=== PATIENT | male | born 1975 | race Caucasian/White ===

== ENCOUNTER → 2016-08-13 | Outpatient (CLI) | payer OTHER ==
[~2016-08-13] MED LIST: ALBUTEROL0.09 MG/A2 IH; ALBUTEROL0.09 MG/A2 INH; AMOXICILLIN500 MG PO; ANAPROX DS550 MG PO; BENADRYL25 M2 PO; CHANTIX START M1 TAB PO; CLARITIN10 MG PO; CLINDAMYCIN HC300 MG PO; CLINDAMYCIN300 MG PO; CLINORIL200 MG PO; COGENTIN0.5 MG PO; COZAAR25 M1 PO; CYCLOBENZAPRINE10 MG PO; FOLIC ACID1 MG PO; GLUCOPHAGE1000 MG PO; INDOCIN50 MG PO; KEFLEX500 MG PO; LIPITOR40 MG PO; MOTRIN800 MG PO; NAPROSYN500 MG PO; NOVOLOG MI100 UNIT/2 SQ; PHENERGAN W/DM120 ML PO; PREDNICOT10 MG PO; PREDNISONE20 MG PO; PRILOSEC20 MG PO; PRILOSEC40 MG PO; PRISTIQ50 MG PO; PROAIR HFA0.09 MG/AC INH; PROZAC20 MG PO; RESTASIS 0.4 M0.4 M1 OP; SULINDAC200 MG PO; TRAZADONE; VIBRAMYCIN100 MG PO; VICODIN 5/500 505 MG PO; VICODIN ES 7501 TA1; VISTARIL25 M2 PO; WELLBUTRIN SR200 MG PO; XANAX0.5 MG PO; Z-PACK; ZANTAC 300300 MG PO; ZITHROMAX Z PA250 MG PO; ZOLOFT25 MG PO
--- NOTE | ~2016-08-13 | ST ---
[place], [place] EXERCISE STRESS TEST REPORT NAME: RAMON ROGERS UNIT #: [id number] ROOM: DOCTOR: ALEXEY FALCON MD BIRTHDATE: [birth year] DOS: 08/13/2016 PHARMACOLOGIC STRESS TEST REASON FOR STRESS TEST: Dyspnea. PROCEDURE: The patient was given a rapid infusion of regadenoson followed by a saline flush. He experienced some hot sensations. He had no chest pain, dyspnea or nausea. The resting and stress electrocardiograms showed normal sinus rhythm without diagnostic ST changes. He did have a normal tachycardic response to the infusion, but no ST changes. The resting heart rate of 105 j luis to 118. The resting blood pressure of 114/68 fell to 96/62. After the infusion of regadenoson, the patient was given radionuclide intravenously. IMPRESSION: 1. Well tolerated infusion of regadenoson. 2. Isotope injected. Please see the separate myocardial perfusion report for details of the patient's stress test results. ALEXEY FALCON MD CM:STRESS:EXERCISE STRESS TEST REPORT [id number] ALEXEY FALCON MD
== END | disposition home or self-care (01) ==
LOC: CARD 02:26
DX: E11.9 Type 2 diabetes mellitus without complications (principal); I10 Essential (primary) hypertension; R06.09 Other forms of dyspnea; E78.4 Other hyperlipidemia; R06.02 Shortness of breath; Z79.4 Long term (current) use of insulin; I31.3 Pericardial effusion (noninflammatory)

== ENCOUNTER 2016-08-15 14:23 | Emergency (ER) | payer OTHER ==
[~2016-08-15] VITALS: Ht 165.1 cm; Wt 113.4 kg
[~2016-08-15 14:23] MED LIST changes: -CYCLOBENZAPRINE10 MG PO
[2016-08-15 14:41] VITALS: BP 118/63
[2016-08-15] MEDS ORDERED: NAPROSYN500 MG PO (15:50)
[2016-08-15] MEDS ORDERED: CYCLOBENZAPRINE10 MG PO (15:50)
== END 2016-08-15 15:53 | disposition home or self-care (01) ==
LOC: ED 14:23
DX: S39.012A Strain of muscle, fascia and tendon of lower back, initial encounter (principal); F17.200 Nicotine dependence, unspecified, uncomplicated; Z88.0 Allergy status to penicillin; Z88.8 Allergy status to other drugs, medicaments and biological substances; Z79.899 Other long term (current) drug therapy; X58.XXXA Exposure to other specified factors, initial encounter; Y93.9 Activity, unspecified; Y92.9 Unspecified place or not applicable; Y99.9 Unspecified external cause status

== ENCOUNTER 2017-01-18 12:05 | Inpatient (IN) | payer OTHER ==
[~2017-01-18] VITALS: Ht 165.1 cm; Wt 138.3 kg
[2017-01-18 12:05] VITALS: BP 141/87
[~2017-01-18 12:05] MED LIST changes: +CYCLOBENZAPRINE10 MG PO
[2017-01-18 12:34] LABS: BASO # 0.1 10*3/uL (0.0-0.1); BASO % 1.3 % (0.0-1.0); EOS # 0.2 10*3/uL (0.0-0.4); EOS % 2.2 % (1.0-4.0); HEMATOCRIT 45.1 % (42.0-52.0); HEMOGLOBIN 15.9 g/dl (14.0-18.0); LYMPH # 1.6 10*3/uL (1.3-4.4); MEAN CELL VOLUME 80.5 fl (80.0-94.0); MEAN CORPUSCULAR HGB 28.4 pg (27.0-31.0); MEAN CORPUSCULAR HGB CONC 35.3 g/dl (33.0-37.0); MEAN PLATELET VOLUME 11.7 fl (9.6-12.3); MONO # 0.4 10*3/uL (0.1-1.0); MONO % 4.3 % (3.0-9.0); NEUT # 5.9 10*3/uL (2.3-7.9); PLATELET COUNT AUTOMATED 150 10*3/uL (130-400); RED CELL DISTRI WIDTH 12.3 % (0-14.5); WHITE BLOOD COUNT 8.2 10*3/uL (4.8-10.8)
[2017-01-18 12:52] LABS: ALBUMIN 4.2 gm/dl (3.1-4.5); ALKALINE PHOSPHATASE 171 U/L (45-117); BILIRUBIN, TOTAL 0.6 mg/dl (0.2-1.0); BUN 5 mg/dl (7-24); CARBON DIOXIDE 25 mmol/L (21-32); CHLORIDE 99 mmol/L (98-107); EST GLOM FILT AFRICAN AMERICAN > 60 ml/min; GLUCOSE 231 mg/dL (65-99); SGOT/AST 48 IU/L (3-35); SGPT/ALT 81 U/L (12-78); SODIUM 137 mmol/L (136-145); TOTAL PROTEIN 7.6 gm/dL (6.4-8.2)
[2017-01-18 12:57] LABS: TROPONIN I < 0.015 ng/ml (<0.045)
[2017-01-18] MEDS ORDERED: BENZTROPINE ME0.5 MG PO ×2 (13:00→13:06)
[2017-01-18] MEDS ORDERED: BUPROPION HYDR200 M2 PO (13:00)
[2017-01-18] MEDS ORDERED: ALPRAZOLAM0.5 M3 PO (13:00)
[2017-01-18] MEDS ORDERED: HYDROXYZINE PAM25 M1 PO (13:01)
[2017-01-18] MEDS ORDERED: PRISTIQ50 MG PO (13:01)
[2017-01-18] MEDS ORDERED: K-TAB20 MEQ PO (13:02)
[2017-01-18] MEDS ORDERED: LIPITOR20 MG PO (13:03)
[2017-01-18] MEDS ORDERED: ZYLOPRIM100 MG PO (13:04)
[2017-01-18] MEDS ORDERED: HYZAAR 12.5 MG-1 TA2 PO (13:04)
[2017-01-18] MEDS ORDERED: NATURE'S BLEND F1 MG PO (13:04)
[2017-01-18] MEDS ORDERED: CARTIA XT120 MG PO (13:04)
[2017-01-18] MEDS ORDERED: POTASSIUM CHLOR8 MEQ PO (13:05)
[2017-01-18] MEDS ORDERED: SULINDAC200 M1 PO (13:05)
[2017-01-18] MEDS ORDERED: PRISTIQ100 MG PO (13:06)
[2017-01-18] MEDS ORDERED: ZOFRAN4 MG PO (13:06)
[2017-01-18] MEDS ORDERED: PRILOSEC20 M1 PO (13:07)
[2017-01-18] MEDS ORDERED: HALOPERIDOL10 MG PO (13:07)
[2017-01-18] MEDS ORDERED: CLARITIN10 MG PO (13:08)
[2017-01-18] MEDS ORDERED: HYDROXYZINE HCL25 M1 PO (13:08)
[2017-01-18] MEDS ORDERED: ZANTAC 150150 MG PO (13:08)
[2017-01-18] MEDS ORDERED: XANAX0.5 MG PO (13:08)
[2017-01-18] MEDS ORDERED: METFORMIN1000 MG PO (13:09)
[2017-01-18] MEDS ORDERED: GLIMEPIRIDE2 MG PO (13:09)
[2017-01-18] MEDS ORDERED: INVOKANA100 M1 PO (13:09)
[2017-01-18] MEDS ORDERED: NOVOLOG 70/30 M10 ML SC (13:10)
[2017-01-18] MEDS ORDERED: TRULICITY0.75 MG/0. SC (13:11)
[2017-01-18 13:47] VITALS: BP 149/103
[2017-01-18 14:00] VITALS: BP 144/89
[2017-01-18 16:00] VITALS: BP 122/80
[2017-01-18 19:32] LABS: BILIRUBIN NEGATIVE (NEGATIVE); BLOOD NEGATIVE (NEGATIVE); CLARITY CLEAR (CLEAR); COLOR YELLOW (YELLOW); GLUCOSE 3+ (NEGATIVE); KETONE NEGATIVE (NEGATIVE); LEUKO ESTERASE NEGATIVE (NEGATIVE); NITRITE NEGATIVE (NEGATIVE); PH 5.5 (5.0-9.0); PROTEIN NEGATIVE (NEGATIVE); UROBILINOGEN 0.2 E.U./dl (0.2-1.0)
[2017-01-18 19:47] LABS: BACTERIA 1+; EPITHELIAL CELLS 0-2; RBC 0-2 rbc/hpf (0-2); URINE REFLEX COMMENT NO (NO); WBC 0-2 wbc/hpf (0-5)
[2017-01-18 20:00] VITALS: BP 155/91
[2017-01-19] VITALS: BP 134/83
[2017-01-19 06:12] LABS: BASO # 0.1 10*3/uL (0.0-0.1); BASO % 1.5 % (0.0-1.0); EOS # 0.2 10*3/uL (0.0-0.4); EOS % 2.9 % (1.0-4.0); HEMOGLOBIN 15.3 g/dl (14.0-18.0); LYMPH # 1.5 10*3/uL (1.3-4.4); LYMPH % 23.3 % (27.0-41.0); MEAN CELL VOLUME 81.8 fl (80.0-94.0); MEAN CORPUSCULAR HGB 28.4 pg (27.0-31.0); MEAN CORPUSCULAR HGB CONC 34.8 g/dl (33.0-37.0); MEAN PLATELET VOLUME 11.9 fl (9.6-12.3); MONO # 0.4 10*3/uL (0.1-1.0); MONO % 6.1 % (3.0-9.0); NEUT # 4.3 10*3/uL (2.3-7.9); NEUT % 65.9 % (47.0-73.0); PLATELET COUNT AUTOMATED 122 10*3/uL (130-400); RED BLOOD COUNT 5.38 10*6/uL (4.50-5.90); RED CELL DISTRI WIDTH 12.4 % (0-14.5); WHITE BLOOD COUNT 6.6 10*3/uL (4.8-10.8)
[2017-01-19 06:46] LABS: ALBUMIN 4.1 gm/dl (3.1-4.5); BUN 9 mg/dl (7-24); CARBON DIOXIDE 33 mmol/L (21-32); CHLORIDE 97 mmol/L (98-107); EST GLOM FILT AFRICAN AMERICAN > 60 ml/min; GLUCOSE 207 mg/dL (65-99); POTASSIUM 3.6 mmol/L (3.5-5.1); SGOT/AST 45 IU/L (3-35); SGPT/ALT 72 U/L (12-78); SODIUM 138 mmol/L (136-145)
[2017-01-19 06:48] LABS: ALKALINE PHOSPHATASE 151 U/L (45-117); BILIRUBIN, TOTAL 0.6 mg/dl (0.2-1.0); TOTAL PROTEIN 7.3 gm/dL (6.4-8.2)
[2017-01-19 08:00] VITALS: BP 137/88
[2017-01-19 12:00] VITALS: BP 152/81
== END 2017-01-19 12:50 | disposition home or self-care (01) | DRG 391 ==
LOC: ED 12:05 → 4E 13:28 → EDHOLD 13:28 → 4E 13:37
PROVIDERS: Family Medicine; Student in an Organized Health Care Education/Training Program
DX: K21.9 Gastro-esophageal reflux disease without esophagitis (principal); J18.9 Pneumonia, unspecified organism; J44.0 Chronic obstructive pulmonary disease with (acute) lower respiratory infection; E11.65 Type 2 diabetes mellitus with hyperglycemia; Z68.43 Body mass index [BMI] 50.0-59.9, adult; R07.89 Other chest pain; F41.9 Anxiety disorder, unspecified; R10.9 Unspecified abdominal pain; E66.9 Obesity, unspecified; F32.9 Major depressive disorder, single episode, unspecified; R74.0 Nonspecific elevation of levels of transaminase and lactic acid dehydrogenase [LDH]; Z88.0 Allergy status to penicillin; Z88.8 Allergy status to other drugs, medicaments and biological substances; Z79.899 Other long term (current) drug therapy; Z82.49 Family history of ischemic heart disease and other diseases of the circulatory system; Z90.49 Acquired absence of other specified parts of digestive tract; Z79.84 Long term (current) use of oral hypoglycemic drugs; Z79.4 Long term (current) use of insulin; Z87.442 Personal history of urinary calculi